=== PATIENT | female | born 1985 | race Caucasian/White ===

== ENCOUNTER 2021-11-18 09:56 | Emergency (ER) | payer MEDICAID ==
[~2021-11-18] VITALS: Ht 162.6 cm; Wt 78.0 kg
[2021-11-18 10:00] VITALS: BP 148/86
[2021-11-18 12:36] LABS: *AMPHETAMINES SCREEN URINE PRESUMTIVE POSITIVE (NEGATIVE); *BARBITURATES SCREEN URINE NEGATIVE (NEGATIVE); *BENZODIAZEPINES SCREEN URINE NEGATIVE (NEGATIVE); *COCAINE SCREEN URINE NEGATIVE (NEGATIVE); CANNABINOID URINE SCREEN NEGATIVE (NEGATIVE); METHADONE URINE SCREEN NEGATIVE (NEGATIVE); OPIATES URINE SCREEN NEGATIVE (NEGATIVE); PHENCYCLIDINE URINE SCREEN NEGATIVE (NEGATIVE)
== END 2021-11-18 12:51 | disposition home or self-care (01) ==
LOC: ER 09:56
DX: Z02.2 Encounter for examination for admission to residential institution (principal)
CPT/HCPCS: 80305; 99283